=== PATIENT | male | born 1990 | race Caucasian/White ===

== ENCOUNTER 2019-01-03 21:54 | Emergency (ER) | payer SELFPAY | END 2019-01-03 22:32 | disposition home or self-care (01) | LOC: COL.ER 21:54 | DX: K02.9 Dental caries, unspecified (principal) ==

== ENCOUNTER 2019-07-10 22:25 | Emergency (ER) | payer OTHER ==
[~2019-07-10] VITALS: Ht 172.7 cm; Wt 88.6 kg
[~2019-07-10 22:25] MED LIST: AMOXICILLIN 8751 TAB PO
[2019-07-10 22:38] VITALS: TEMP 97.8
[2019-07-10] MEDS ORDERED: CEPHALEXIN500 M1 PO (23:20)
[2019-07-10 23:53] VITALS: BP 125/70; PULSE 60
== END 2019-07-10 23:54 | disposition home or self-care (01) ==
LOC: COL.ER 22:25
DX: S51.812A Laceration without foreign body of left forearm, initial encounter (principal); F12.90 Cannabis use, unspecified, uncomplicated; Z23 Encounter for immunization; W26.8XXA Contact with other sharp object(s), not elsewhere classified, initial encounter